=== PATIENT | male | born 1945 | race Caucasian/White ===

== ENCOUNTER → 2016-11-25 | Outpatient (CLI) | payer MEDICARE, BC | END | disposition home or self-care (01) | LOC: CLAB 10:53 | DX: H40.52X3 Glaucoma secondary to other eye disorders, left eye, severe stage (principal); H25.813 Combined forms of age-related cataract, bilateral; H34.8130 Central retinal vein occlusion, bilateral, with macular edema | CPT/HCPCS: 36415; 85652; 86140 ==